=== PATIENT | male | born 1995 | race Caucasian/White ===

== ENCOUNTER → 2023-06-08 18:51 | Outpatient (BNVA) | payer OTHER, SELFPAY | PROVIDERS: PCP Family Medicine; Visit Provider Emergency Medicine | DX: J02.9 Acute pharyngitis, unspecified (principal) | CPT/HCPCS: 87880 ==

== ENCOUNTER 2023-08-19 10:25 | Outpatient (CLI) | payer OTHER, SELFPAY | END 2023-08-19 10:26 | disposition home or self-care (01) | LOC: RAD 01-17 08:06 | PROVIDERS: Visit Provider Family Medicine | DX: M41.86 Other forms of scoliosis, lumbar region (principal); S32.020A Wedge compression fracture of second lumbar vertebra, initial encounter for closed fracture; X58.XXXA Exposure to other specified factors, initial encounter; M54.16 Radiculopathy, lumbar region; M53.3 Sacrococcygeal disorders, not elsewhere classified | CPT/HCPCS: 72100; 72202 ==

== ENCOUNTER → 2023-08-19 10:26 | Outpatient (CLI) | payer OTHER, SELFPAY ==
[2022-08-13 20:09] VITALS: BP 151/69; PULSE 90; RESP 15; TEMP 36.6; O2SAT 98; BMI 24.8
--- NOTE | 2022-08-13 20:27 | W.ED.WOUNDLC ---
HPI - Wound/Laceration General: Chief Complaint: Wound/Laceration Stated Complaint: lac above right eye Time Seen by Provider: 08/13/22 20:27 History of Present Illness: 27-year-old male patient was playing basketball tonight when he was struck in the eye by a elbow. Patient sustained a superficial laceration to the upper eyelid on the right side of the eye. Globe of the eye looks normal. Patient reports that his tetanus is up-to-date. Patient denies any chronic medical problems. Associated symptoms: Denies nausea Review of Systems General: Reports: 10 or more systems reviewed and unremarkable except in HPI and below Eyes: Reports: other (Eyelid laceration, not involving the margin of the lid) ENMT: Denies: mouth pain Card: Denies: chest pain Resp: Denies: dyspnea GI: Denies: nausea : Denies: difficulty urinating Musc: Denies: back pain Skin/Breast: Denies: rash Physical Exam Const: COMMON NORMALS: alert HENMT: COMMON NORMALS: normocephalic HEAD & SCALP: normocephalic Neck/C-Spine: COMMON NORMALS: full ROM CERVICAL SPINE: No Cervical spine tenderness Resp: COMMON NORMALS: normal respiratory effort Cardio: COMMON NORMALS: regular rate RATE: regular rate Extremity: COMMON NORMALS: normal to inspection Neuro: SENSORIUM/ORIENTATION: Yes alert Skin: COMMON NORMALS: turgor normal GENERAL SKIN EXAM: turgor normal Procedures Laceration Laceration 1: Site: face Side (If applicable): right Size (cm): 1 Depth: simple, single layer Pre-repair: wound explored and irrigated extensively Skin layer closed with: other (Adhesive) Course Vital Signs: Vital signs: Vital Signs Temperature 97.9 F 08/13/22 20:09 Pulse Rate 90 08/13/22 20:09 Respiratory Rate 15 08/13/22 20:09 Blood Pressure 151/69 08/13/22 20:09 Pulse Oximetry 98 08/13/22 20:09 Oxygen Delivery Me thod Room Air 08/13/22 20:09 MDM - Wound/Laceration Medical Decision Making 27-year-old male patient comes in today for complaints of injury to the right upper eyelid. Patient has a superficial laceration to the eyelid not involving margins of the lid. No injury is noted to the eye. Patient appears nontoxic. Differential diagnosis includes but not limited to foreign body, laceration, fracture. No signs of fracture or foreign bodies noted. Wound was cleaned and approximated and secured with skin adhesive. Patient tolerated well. Reviewed postprocedure instructions with patient with recommendations for treatment and follow-up. Patient reported understanding. Discharge Plan Discharge Patient Disposition: Home Clinical Impression: Laceration of eyelid without involvement of lid margin Condition: Stable Discharge Orders: Discharge ED (Routine); Ordered 08/13/22 Ordered By: Stalin Wayne Referrals: Gulshan Moran DO [Primary Care Provider] - Discharge Diet: Usual diet Discharge Activity: Increase activity as tolerated Patient Instructions: Skin Adhesive Care (ED) Activity Restrictions/Additional Instructions: Keep wound clean and dry. Is important keep the wound as dry as possible for the next 48 hours. After that you can gently wash around the area with mild soap and water. Do not apply any ointment to the wound as this will denatured the glue. The skin to the face usually heals quickly and within 3 to 5 days that should be healed. Watch the site for signs of infection such as increased redness swelling and fever. Follow-up with primary care as needed. Return to ER for new concerns. Coding Level of Care Code [facility] for Vick Burns
[2022-08-13 21:34] VITALS: BP 123/70; PULSE 64; O2SAT 98
--- NOTE | 2023-08-19 10:33 | XR_ITS ---
WS: [id number] XR lumbar spine 2-3V* [id number] REASON FOR EXAM: M54.16 - Radiculopathy, lumbar region FINDINGS: 5 lumbar vertebrae. Moderate rotatory scoliosis convex left. Straightening of the normal lordosis of the lumbar spine. There is a mild wedge compression deformity of L2. The intervertebral disc spaces are intact and relatively well preserved. Mild narrowing of the L5-S1 disc space. No spondylolysis or significant spondylolisthesis. XR/XR lumbar spine 2-3V* [id number] IMPRESSION: Wedge-shaped compression deformity of L2 of unknown chronicity.
--- NOTE | 2023-08-19 10:33 | XR_ITS ---
WS: [id number] XR sacroiliac jts m 3V [id number] REASON FOR EXAM: M54.50 - Low back pain, unspecified FINDINGS: The sacroiliac joints are well defined with thin sclerotic margins. No erosions. No bridging or fusion. XR/XR sacroiliac jts m 3V [id number] IMPRESSION: No significant abnormality.
== END | disposition home or self-care (01) ==
LOC: ER 08-13 21:20 → RAD 10:26
PROVIDERS: Emergency Provider Nurse Practitioner Family; PCP Family Medicine; Visit Provider Family Medicine
DX: M54.50 Low back pain, unspecified; M53.3 Sacrococcygeal disorders, not elsewhere classified; M54.16 Radiculopathy, lumbar region; S32.020A Wedge compression fracture of second lumbar vertebra, initial encounter for closed fracture; X58.XXXA Exposure to other specified factors, initial encounter
CPT/HCPCS: 12011; 72100; 72202; 99282

== ENCOUNTER 2023-09-05 14:07 | Outpatient (CLI) | payer OTHER, SELFPAY ==
--- NOTE | 2023-09-05 14:30 | MR_ITS ---
WS: [id number] MRI LUMBAR SPINE NONCONTRAST HISTORY: worsening lumbar/radiculopathy COMPARISON: None available. TECHNIQUE: Sagittal and axial multisequence imaging is submitted. Normal posterior lumbar alignment. Very slight anterior wedging of L2 without edema. The remaining ve rtebral bodies are normal. No acute fractures. Disc spaces and vertebral body heights are well-preserved. Conus terminates normally at L1-2 disc level. L1-L2: Mild annular disc bulging. Mild facet arthritis. L2-L3: Mild annular disc bulging with very mild ligamentum flavum and facet arthritis. Mild encroachm ent upon the foramina. L3-L4: Moderate annular disc bulging with a central disc protrusion effacing CSF. Ligamentum flavum a nd facet arthritis. Moderate to severe central with bilateral subarticular recess stenosis and modera te foraminal stenosis. There is disc contacting and encroaching upon the traversing L4 nerve roots. L4-L5: Marked annular disc bulging encroaching upon the subarticular recesses and central canal. Mode rate central and subarticular recess encroachment. There is disc contacting and deforming the néstor ing L5 nerve roots. Mild to moderate bilateral foraminal stenosis. L5-S1: Mild annular disc bulging. Small central disc protrusion. There is mild disc contact on the S1 nerve roots but greatest on the LEFT. Moderate bilateral foraminal stenosis. No paravertebral abnormality. MR/MR lumbar spine wo con* [id number] IMPRESSION: 1. Very mild anterior wedging of L2, nonacute. 2. L3-4: Moderate to severe central with bilateral subarticular recess and for aminal stenosis. Disc contacts the traversing L4 nerve roots. 3. L4-5: Moderate central with bilateral subarticular recess stenosis. Mild to moderate foraminal stenosis. 4. L5-S1: Small central disc protrusion contacts the S1 nerve roots, greater o n the LEFT. Moderate bilateral foraminal stenosis. 5. Thecal sac is narrowed throughout, there is probably a component of short p edicles.
== END 2023-09-05 14:08 | disposition home or self-care (01) ==
LOC: RAD 14:07
PROVIDERS: PCP Family Medicine; Visit Provider Family Medicine
DX: M54.16 Radiculopathy, lumbar region (principal); M48.061 Spinal stenosis, lumbar region without neurogenic claudication; M99.63 Osseous and subluxation stenosis of intervertebral foramina of lumbar region; M48.07 Spinal stenosis, lumbosacral region; G95.29 Other cord compression
CPT/HCPCS: 72148

== ENCOUNTER 2023-10-23 08:03 | Outpatient (CLI) | payer OTHER, SELFPAY ==
--- NOTE | 2023-10-23 08:06 | USR_ITS ---
PROCEDURE INFORMATION: Exam: US Duplex Artery or Vein of the Abdominal and/or Reproductive Organs, Limited Liver Exam date and time: 10/23/2023 8:11 AM Age: 28 years old Clinical indication: Abnormal findings; Abnormal lab test; Elevated liver enzymes TECHNIQUE: Imaging protocol: Real-time duplex ultrasound scan of the arterial or venous flow with color Doppler flow and spectral waveform analysis with image documentation. Limited Duplex exam focused on the liver and portal venous system. Duplex exam was performed to evaluate for vascular conditions. COMPARISON: MR lumbar spine wo con* [id number] 09/05/2023 2:22 PM FINDINGS: Portal venous: The portal vein is patent with hepatopetal flow. Spectral waveform demonstrates normal respiratory phasicity. PROCEDURE INFORMATION: Exam: US Abdomen, Limited; Right Upper Quadrant Exam date and time: 10/23/2023 8:11 AM Age: 28 years old Clinical indication: Abnormal findings; Abnormal lab test; Elevated liver enzymes TECHNIQUE: Imaging protocol: Real time ultrasound of the abdomen with image documentation. Limited exam focused on the right upper quadrant. COMPARISON: MR lumbar spine wo con* [id number] 09/05/2023 2:22 PM FINDINGS: Liver: Unremarkable Gallbladder: Gallbladder wall measures 2 mm. No gallstones. Biliary ducts: Comment bile duct measures 3 mm. Pancreas: Visualized pancreas is unremarkable. Right kidney: Right kidney measures 10.4 cm. No hydronephrosis. Aorta: Normal in caliber. US/US abdomen limited [id number] IMPRESSION: Unremarkable duplex of the portal vein. IMPRESSION: No acute findings.
== END 2023-10-23 08:04 | disposition home or self-care (01) ==
LOC: RAD 08:04
PROVIDERS: PCP Family Medicine; Visit Provider Family Medicine
DX: Z01.89 Encounter for other specified special examinations (principal)
CPT/HCPCS: 76705

== ENCOUNTER 2023-11-13 06:00 | Outpatient (RCR) | payer OTHER, SELFPAY | END 2023-11-20 23:59 | disposition home or self-care (01) | LOC: APT 06:00 | PROVIDERS: Visit Provider Surgery | DX: M51.36 Other intervertebral disc degeneration, lumbar region (principal); M48.061 Spinal stenosis, lumbar region without neurogenic claudication | CPT/HCPCS: 97110; 97112; 97161; 97530 ==

== ENCOUNTER 2023-11-21 06:00 | Outpatient (RCR) | payer OTHER, SELFPAY | END 2023-12-21 23:59 | disposition home or self-care (01) | LOC: APT 06:00 | PROVIDERS: Visit Provider Surgery | DX: M51.36 Other intervertebral disc degeneration, lumbar region (principal); M48.061 Spinal stenosis, lumbar region without neurogenic claudication; M54.16 Radiculopathy, lumbar region | CPT/HCPCS: 97110; 97112; 97530 ==

== ENCOUNTER 2023-12-22 06:00 | Outpatient (RCR) | payer OTHER, SELFPAY | END 2024-01-20 23:59 | disposition home or self-care (01) | LOC: APT 06:00 | PROVIDERS: Visit Provider Surgery | DX: M51.36 Other intervertebral disc degeneration, lumbar region (principal); M48.061 Spinal stenosis, lumbar region without neurogenic claudication; M54.16 Radiculopathy, lumbar region | CPT/HCPCS: 97110; 97530 ==

== ENCOUNTER 2024-01-21 06:00 | Outpatient (RCR) | payer OTHER, SELFPAY | END 2024-02-20 23:59 | disposition home or self-care (01) | LOC: APT 06:00 | PROVIDERS: Visit Provider Surgery | DX: M51.369 Other intervertebral disc degeneration, lumbar region without mention of lumbar back pain or lower extremity pain (principal); M48.061 Spinal stenosis, lumbar region without neurogenic claudication; M54.16 Radiculopathy, lumbar region | CPT/HCPCS: 97110; 97112; 97530 ==

== ENCOUNTER 2024-02-21 06:00 | Outpatient (RCR) | payer OTHER, SELFPAY | END 2024-03-21 23:59 | disposition home or self-care (01) | LOC: APT 06:00 | PROVIDERS: Visit Provider Surgery | DX: M48.061 Spinal stenosis, lumbar region without neurogenic claudication (principal); M54.16 Radiculopathy, lumbar region | CPT/HCPCS: 97110; 97112; 97530 ==

== ENCOUNTER 2024-03-22 06:00 | Outpatient (RCR) | payer OTHER, SELFPAY | END 2024-04-21 23:59 | disposition home or self-care (01) | LOC: APT 06:00 | PROVIDERS: Visit Provider Surgery | DX: M54.16 Radiculopathy, lumbar region (principal); M51.369 Other intervertebral disc degeneration, lumbar region without mention of lumbar back pain or lower extremity pain | CPT/HCPCS: 97110; 97112; 97530 ==

== ENCOUNTER 2024-06-20 06:00 | Outpatient (RCR) | payer OTHER, SELFPAY | END 2024-07-20 23:59 | disposition home or self-care (01) | LOC: APT 06:00 | PROVIDERS: Visit Provider Family Medicine | DX: M54.50 Low back pain, unspecified (principal) | CPT/HCPCS: 97161 ==

== ENCOUNTER 2024-08-20 05:00 | Outpatient (RCR) | payer OTHER, SELFPAY | END 2024-09-19 23:55 | disposition home or self-care (01) | LOC: APT 05:00 | PROVIDERS: Visit Provider Family Medicine | DX: M54.50 Low back pain, unspecified (principal) | CPT/HCPCS: 97110 ==

== ENCOUNTER 2024-09-20 05:00 | Outpatient (RCR) | payer OTHER, SELFPAY | END 2024-10-19 23:59 | disposition home or self-care (01) | LOC: APT 05:00 | PROVIDERS: Visit Provider Family Medicine | DX: M54.50 Low back pain, unspecified (principal) | CPT/HCPCS: 97110 ==

== ENCOUNTER → 2025-03-31 14:13 | Outpatient (BNVA) | payer OTHER, SELFPAY | PROVIDERS: Visit Provider Clinical Nurse Specialist Adult Health | DX: J02.9 Acute pharyngitis, unspecified (principal) | CPT/HCPCS: 87880 ==